=== PATIENT | male | born 1945 ===

== ENCOUNTER 2020-12-11 10:22 | Emergency (ER) | payer MEDICARE, BC ==
[~2020-12-11] VITALS: Ht 180.3 cm; Wt 110.2 kg
[2020-12-11] MEDS ORDERED: Cyclobenzaprine5 MG PO (11:00)
[2020-12-11] MEDS ORDERED: IBUP400 PO (11:00)
== END 2020-12-11 11:17 | disposition home or self-care (01) ==
LOC: ER 10:22
DX: M54.5 Low back pain (principal)
CPT/HCPCS: 96372; 99283-25; J1885

== ENCOUNTER → 2021-02-05 | Outpatient (CLI) | payer MEDICARE, BC ==
[~2021-02-05] MED LIST: Cyclobenzaprine5 MG PO; IBUP400 PO
== END | disposition home or self-care (01) ==
LOC: LAB SHORT 11:10 → LAB 11:10
DX: E11.9 Type 2 diabetes mellitus without complications (principal)
CPT/HCPCS: 82043

== ENCOUNTER → 2021-03-08 | Outpatient (CLI) | payer MEDICARE, BC ==
[2021-03-08 17:30] LABS: BASOPHILS ABSOLUTE AUTO 0.04 K/mm3 (0.00-0.23); BASOPHILS PERCENT AUTO 1 % (0-2); EOSINOPHILS ABSOLUTE AUTO 0.19 K/mm3 (0.00-0.68); EOSINOPHILS PERCENT AUTO 4 % (0-6); IMMATURE GRAN ABSOLUTE AUTO 0.01 K/mm3 (0.00-0.10); IMMATURE GRAN PERCENT AUTO 0 % (0-1); LYMPHOCYTES ABSOLUTE AUTO 1.46 K/mm3 (0.84-5.20); LYMPHOCYTES PERCENT AUTO 30 % (21-46); MONOCYTES ABSOLUTE AUTO 0.43 K/mm3 (0.16-1.47); MONOCYTES PERCENT AUTO 9 % (4-13); Mean Corpuscular HGB 28.1 pg (26.0-34.0); Mean Corpuscular HGB Conc 32.5 g/dL (31.5-36.5); Mean Corpuscular Volume 86 fL (80-100); Mean Platelet Volume 9.7 fL (9.1-12.4); NEUTROPHILS ABSOLUTE AUTO 2.77 K/mm3 (1.96-9.15); NEUTROPHILS PERCENT AUTO 57 % (41-73); Platelet Count 291 K/mm3 (150-400); RDW Coefficient Variation 16.2 % (11.7-14.2); RDW Standard Deviation 50.6 fL (35.1-46.3); Red Blood Cell Count 4.63 M/mm3 (4.30-5.90)
== END ==
LOC: LAB SHORT 14:00 → LAB 14:00
PROVIDERS: Nurse Practitioner Family
DX: D64.9 Anemia, unspecified (principal)
CPT/HCPCS: 85025

== ENCOUNTER 2022-02-20 05:37 | Day surgery (SDC) | payer MEDICARE, BC ==
[~2022-02-20] VITALS: Ht 180.3 cm; Wt 107.0 kg
[~2022-02-20 05:37] MED LIST changes: +ATEN25 PO; +FINA5 PO; +Flomax0.4 MG PO; +NITR.4SL SL; +ROSU10TA PO; +TERBINAFINE TOP
--- NOTE | 2022-02-20 07:45 | NUR ---
[facility]. TR band inplace. no hematoma, no bleeding.
--- NOTE | 2022-02-20 09:20 | NUR ---
patient ambulated to rsetroom with standby assist. tolerated well.
--- NOTE | 2022-02-20 09:25 | NUR ---
Dr Massey here to talk to patient about procedure results.
--- NOTE | 2022-02-20 11:20 | NUR ---
PATIENT VERBALIZED UNDERSTANDING OF DISCHARGE INSTRUCTIONS AND PRECAUTIONS. TR BAND REMOVED AND CLOTH DOT DRESSING PLACED. WRIST BOARD PLACED TO RIGHT WRIST. SITE SOFT AND NONTENDER. NO BLEEDING NO HEMATOMA. IV SITE DCED WITH CATHETER INTACT. NO FURTHER QUESTIONS. PATIENT DISCHARGED VIA WHEEL CHAIR TO WAITING CAR WITH ROOM MATE DRIVING.
== END 2022-02-20 11:00 | disposition home or self-care (01) ==
LOC: MHTC 05:37
DX: I47.2 Ventricular tachycardia (principal); I12.9 Hypertensive chronic kidney disease with stage 1 through stage 4 chronic kidney disease, or unspecified chronic kidney disease; N18.9 Chronic kidney disease, unspecified; E11.22 Type 2 diabetes mellitus with diabetic chronic kidney disease; Z79.899 Other long term (current) drug therapy
CPT/HCPCS: 76937; 93454; 99152; 99153; C1769; C1887; J1644; J2250; J3010; J7030; J7040; Q9967

== ENCOUNTER 2022-08-24 12:24 | Emergency (ER) | payer MEDICARE, BC ==
[~2022-08-24] VITALS: Ht 180.3 cm; Wt 102.5 kg
== END 2022-08-24 14:30 | disposition home or self-care (01) ==
LOC: ER 12:24
DX: S05.02XA Injury of conjunctiva and corneal abrasion without foreign body, left eye, initial encounter (principal); X58.XXXA Exposure to other specified factors, initial encounter; Z79.899 Other long term (current) drug therapy
CPT/HCPCS: A9270

== ENCOUNTER 2022-11-11 07:30 | Day surgery (SDC) | payer MEDICARE, BC ==
[~2022-11-11] VITALS: Ht 180.3 cm; Wt 104.7 kg
[~2022-11-11 07:30] MED LIST changes: +ACYC400 PO; +LISI5 PO; +LYRICA PO; +METF500 PO; +ZOLP10 PO
[2022-11-11] MEDS ORDERED: MULTI-VITAMIN1 EAC2 PO (08:16)
--- NOTE | 2022-11-11 08:59 | NUR ---
Ambulatory in Day Surgery History, Chart, Medications and Allergies reviewed before start of procedure.Patient confirms NPO status and agrees with scheduled surgery. Patient States Post-Procedure ride home has been arranged.
--- NOTE | 2022-11-11 09:01 | NUR ---
Pre-Op teaching done. Pt verbalizes understanding.
--- NOTE | 2022-11-11 19:39 | NUR ---
SHIFT SUMMARY DUE TO SPINAL PT WASN'T ABLE TO WORK w/ THERAPY. BUT IS DOING WELL OTHERWISE. EATING, DRINKING, VOIDING. PAIN WELL CONTROLLED. PLEASANT & COOPERATIVE. WAS ABLE TO STAND AT BEDSIDE BUT NOT READY TO AMBULATE.
--- NOTE | 2022-11-12 05:14 | NUR ---
SHIFT SUMMARY NO ACUTE CHANGES. PT SLEPT WELL. AQUACEL DRESSING TO L HIP REMAINS CDI WITH POLAR PACK IN PLACE. UP WITH 1 SBA USING FWW + GB. PAIN MANAGED WITH SCHEDULED TYLENOL/TORADOL + 1 ROXICODONE. MIGUEL ÁNGEL PO. VOIDING SPONTANEOUSLY. PLAN TO WORK WITH PT/OT TODAY. USES CALL LIGHT APPROPRIATELY.
[2022-11-12 05:27] LABS: BASOPHILS ABSOLUTE AUTO 0.01 K/mm3 (0.00-0.23); BASOPHILS PERCENT AUTO 0 % (0-2); EOSINOPHILS ABSOLUTE AUTO 0.04 K/mm3 (0.00-0.68); EOSINOPHILS PERCENT AUTO 1 % (0-6); Hematocrit 35.8 % (37.0-53.0); Hemoglobin 11.7 g/dL (13.5-17.5); IMMATURE GRAN ABSOLUTE AUTO 0.01 K/mm3 (0.00-0.10); IMMATURE GRAN PERCENT AUTO 0 % (0-1); LYMPHOCYTES ABSOLUTE AUTO 1.14 K/mm3 (0.84-5.20); LYMPHOCYTES PERCENT AUTO 15 % (21-46); MONOCYTES PERCENT AUTO 11 % (4-13); Mean Corpuscular HGB 29.3 pg (26.0-34.0); Mean Corpuscular HGB Conc 32.7 g/dL (31.5-36.5); Mean Corpuscular Volume 90 fL (80-100); Mean Platelet Volume 9.6 fL (9.1-12.4); NEUTROPHILS ABSOLUTE AUTO 5.64 K/mm3 (1.96-9.15); NEUTROPHILS PERCENT AUTO 74 % (41-73); Platelet Count 207 K/mm3 (150-400); RDW Coefficient Variation 14.4 % (11.7-14.2); RDW Standard Deviation 47.1 fL (35.1-46.3); White Blood Cell Count 7.64 K/mm3 (4.00-11.30)
[2022-11-12 05:44] LABS: Bun/Creatinine Ratio 16.2 (12.0-20.0); Calcium, Blood 8.6 mg/dL (8.5-10.1); Creatinine, Blood 0.99 mg/dL (0.60-1.20); Potassium, Blood 3.8 mmol/L (3.5-5.5)
[2022-11-12] MEDS ORDERED: ASPIR 8181 M1 PO (11:13)
[2022-11-12] MEDS ORDERED: Percocet 5-3251 EACH PO (11:14)
--- NOTE | 2022-11-12 11:43 | NUR ---
DISCHARGE CLEARED THERAPY. PAIN WELL MANAGED. EATING, DRINKING, VOIDING. APPEARS FORGETFUL. SCRIPTS, POLAR PACK, & DRSGS SENT w/ PT. ESCORTED OUT VIA WC TO SPOUSE.
== END 2022-11-12 11:41 | disposition home or self-care (01) ==
LOC: ORSCMMR 07:30 → ORD 09:15 → SURS 13:17 → ORSCMMR 11-12 11:41 → SURS 11-12 11:41
PROVIDERS: Orthopaedic Surgery
PROC: 0SRB0JZ Replacement of Left Hip Joint with Synthetic Substitute, Open Approach (ICD-10-PCS; principal; 2022-11-11 11:30)
DX: M16.12 Unilateral primary osteoarthritis, left hip (principal); E11.9 Type 2 diabetes mellitus without complications; I10 Essential (primary) hypertension; G47.33 Obstructive sleep apnea (adult) (pediatric); Z79.84 Long term (current) use of oral hypoglycemic drugs
CPT/HCPCS: 27130; 0055T; 36415; 72170; 80048; 82947; 85025; 94660; 97110; 97116; 97162; A9270; C1776; J0171; J0690; J0735; J1885; J2250; J2704; J2795; J3010; J7120

== ENCOUNTER → 2023-03-31 | Outpatient (CLI) | payer MEDICARE, BC ==
[~2023-03-31] MED LIST changes: +ASPIR 8181 M1 PO; +MULTI-VITAMIN1 EAC2 PO; +Percocet 5-3251 EACH PO
[2023-03-31 19:02] LABS: BASOPHILS ABSOLUTE AUTO 0.03 K/mm3 (0.00-0.23); BASOPHILS PERCENT AUTO 1 % (0-2); EOSINOPHILS ABSOLUTE AUTO 0.16 K/mm3 (0.00-0.68); EOSINOPHILS PERCENT AUTO 4 % (0-6); Hematocrit 40.8 % (37.0-53.0); Hemoglobin 13.4 g/dL (13.5-17.5); IMMATURE GRAN ABSOLUTE AUTO 0.01 K/mm3 (0.00-0.10); IMMATURE GRAN PERCENT AUTO 0 % (0-1); LYMPHOCYTES ABSOLUTE AUTO 1.61 K/mm3 (0.84-5.20); LYMPHOCYTES PERCENT AUTO 36 % (21-46); MONOCYTES ABSOLUTE AUTO 0.38 K/mm3 (0.16-1.47); MONOCYTES PERCENT AUTO 8 % (4-13); Mean Corpuscular HGB 29.4 pg (26.0-34.0); Mean Corpuscular HGB Conc 32.8 g/dL (31.5-36.5); Mean Corpuscular Volume 90 fL (80-100); Mean Platelet Volume 9.8 fL (9.1-12.4); NEUTROPHILS ABSOLUTE AUTO 2.34 K/mm3 (1.96-9.15); NEUTROPHILS PERCENT AUTO 52 % (41-73); Platelet Count 265 K/mm3 (150-400); RDW Coefficient Variation 14.8 % (11.7-14.2); RDW Standard Deviation 48.9 fL (35.1-46.3); Red Blood Cell Count 4.56 M/mm3 (4.30-5.90); White Blood Cell Count 4.53 K/mm3 (4.00-11.30)
== END ==
LOC: LAB SHORT 17:10 → LAB 17:10
PROVIDERS: Nurse Practitioner Family
DX: E11.42 Type 2 diabetes mellitus with diabetic polyneuropathy (principal); M79.604 Pain in right leg
CPT/HCPCS: 83036; 85025

== ENCOUNTER 2023-05-28 12:44 | Emergency (ER) | payer MEDICARE, BC ==
[~2023-05-28] VITALS: Ht 180.3 cm; Wt 106.1 kg
[2023-05-28 13:16] VITALS: BP 138/76
[2023-05-28] MEDS ORDERED: POLYTRIM EYE DR10 M1 RIGHTEYE (14:03)
== END 2023-05-28 14:16 | disposition home or self-care (01) ==
LOC: ER 12:44
DX: H10.89 Other conjunctivitis (principal)
CPT/HCPCS: 99282

== ENCOUNTER 2023-09-21 12:27 | Emergency (ER) | payer MEDICARE, BC ==
[~2023-09-21] VITALS: Ht 180.3 cm; Wt 106.1 kg
[~2023-09-21 12:27] MED LIST changes: +POLYTRIM EYE DR10 M1 RIGHTEYE
[2023-09-21 12:37] VITALS: BP 137/64
[2023-09-21] MEDS ORDERED: Lidocaine 2% Viscous Soln 15 ML UDC PO ONE (15:15)
[2023-09-21] MEDS ORDERED: Mag Hydrox/AL Hydrox/Simeth 30 ML UDC PO ONE (15:15)
== END 2023-09-21 15:22 | disposition home or self-care (01) ==
LOC: ER 12:27
DX: R68.2 Dry mouth, unspecified (principal); E11.9 Type 2 diabetes mellitus without complications; G47.30 Sleep apnea, unspecified; Z79.899 Other long term (current) drug therapy; Z79.84 Long term (current) use of oral hypoglycemic drugs; Z79.82 Long term (current) use of aspirin
CPT/HCPCS: 71046; 99283-25; A9270

== ENCOUNTER → 2023-09-23 | Outpatient (CLI) | payer MEDICARE, BC ==
[2023-09-23 17:05] LABS: Bun/Creatinine Ratio 17.4 (12.0-20.0); Calcium, Blood 9.6 mg/dL (8.5-10.1); Creatinine, Blood 0.92 mg/dL (0.60-1.20); Potassium, Blood 4.2 mmol/L (3.5-5.5)
== END | disposition home or self-care (01) ==
LOC: LAB SHORT 13:51 → LAB 13:51
PROVIDERS: Physician Assistant
DX: U07.1 COVID-19 (principal)
CPT/HCPCS: 80048

== ENCOUNTER 2025-03-30 14:03 | Emergency (ER) | payer MEDICARE, BC ==
[~2025-03-30] VITALS: Ht 180.3 cm; Wt 92.5 kg
[2025-03-30 14:22] VITALS: BP 146/73
== END 2025-03-30 14:31 | disposition home or self-care (01) ==
LOC: ER 14:03
DX: M76.31 Iliotibial band syndrome, right leg (principal); Z79.899 Other long term (current) drug therapy; Z79.84 Long term (current) use of oral hypoglycemic drugs; Z79.82 Long term (current) use of aspirin; E11.9 Type 2 diabetes mellitus without complications; G47.30 Sleep apnea, unspecified; Z90.49 Acquired absence of other specified parts of digestive tract; Z96.649 Presence of unspecified artificial hip joint
CPT/HCPCS: 99282